=== PATIENT | male | born 1970 | race Caucasian/White ===

== ENCOUNTER 2022-04-02 09:59 | Outpatient (CLI) | payer OTHER, SELFPAY ==
[2022-04-02 20:38] LABS: Kit Draw Collected
== END 2022-04-02 10:00 | disposition home or self-care (01) ==
LOC: ANHGOSHLAB 10:01
PROVIDERS: PCP Family Medicine; Visit Provider Nurse Practitioner
DX: E55.9 Vitamin D deficiency, unspecified (principal); E78.5 Hyperlipidemia, unspecified; I10 Essential (primary) hypertension
CPT/HCPCS: 36415

== ENCOUNTER 2023-03-13 09:35 | Outpatient (CLI) | payer OTHER, SELFPAY ==
[2023-03-13 12:44] LABS: Basophils Absolute Auto 0.1 K/mm3 (0.0-0.1); Basophils Percent Auto 0.9 % (0.2-1.2); Eosinophils Absolute Auto 0.2 K/mm3 (0-0.3); Eosinophils Percent Auto 3.8 % (0-4.4); Hematocrit 41.4 % (42.0-52.0); Immature Granulocyte Absolute 0.01 K/mm3 (0.00-0.031); Immature Granulocyte Percent A 0.2 % (0-0.5); Lymphocytes Absolute Auto 1.42 K/mm3 (0.9-3.2); Lymphocytes Percent Auto 26.8 % (18.3-44.2); Mean Corpuscular HGB Conc 33.8 g/dl (32-36); Mean Corpuscular Hemoglobin 30.6 pg (26-34); Mean Corpuscular Volume 90.6 fl (80-100); Mean Platelet Volume 9.7 fl (7.4-10.4); Monocytes Absolute Auto 0.5 K/mm3 (0.1-0.6); Monocytes Percent Auto 8.5 % (2.6-8.5); Neutrophils Absolute Auto 3.2 K/mm3 (1.3-6.7); Neutrophils Percent Auto 59.8 % (45.5-73.1); Platelet Count Result 233 k/mm3 (150-375); Red Blood Count 4.57 M/mm3 (4.6-6.20); Red Cell Distribution Width 12.5 % (11.5-14.5); White Blood Count 5.3 K/mm3 (4.5-10.0)
[2023-03-13 12:58] LABS: Alanine Aminotransferase 37 U/L (6-50); Albumin Level 4.6 g/dL (3.5-5.1); Alkaline Phosphatase 91 U/L (38-126); Anion Gap 11 mmol/L (8-16); Aspartate Amino Transferase 41 U/L (17-59); Bilirubin,Total 0.6 mg/dL (0.2-1.3); Blood Urea Nitrogen 9 mg/dL (9-20); Calcium 9.7 mg/dL (8.4-10.2); Carbon Dioxide 23 mmol/L (22-30); Chloride 103 mmol/L (98-107); Cholesterol 146 mg/dL (0-200); Estimated Glomerular Filt Rate > 60; Glucose 91 mg/dL (65-110); HDL Direct 53 mg/dL; Potassium 4.1 mmol/L (3.4-5.0); Sodium 137 mmol/L (137-145); Triglycerides 132 mg/dL (<150)
[2023-03-13 13:13] LABS: LDL Cholesterol Direct 66 mg/dL
[2023-03-13 13:27] LABS: Thyroid Stimulating Hormone 0.957 uIU/mL (0.465-4.680)
[2023-03-17 15:53] LABS: Vitamin D 1,25 (OH)2 Total 27 pg/mL (18-72); Vitamin D2 1,25 (OH)2 <8 pg/mL; Vitamin D3 1,25 (OH)2 27 pg/mL
[2023-03-17 18:15] LABS: Testosterone Free 33.2 pg/mL (35.0-155.0); Testosterone Total 296 ng/dL (250-1100)
[2023-03-18 21:11] LABS: PSA, Free 0.14 ng/mL; PSA, Total 0.4 ng/mL (<=4.0)
== END 2023-03-13 09:36 | disposition home or self-care (01) ==
LOC: ANHGOSHLAB 09:36
PROVIDERS: PCP Family Medicine; Visit Provider Nurse Practitioner Family
DX: E55.9 Vitamin D deficiency, unspecified (principal); I10 Essential (primary) hypertension; Z00.00 Encounter for general adult medical examination without abnormal findings; Z12.5 Encounter for screening for malignant neoplasm of prostate; R79.89 Other specified abnormal findings of blood chemistry
CPT/HCPCS: 36415; 80053; 80061; 82652; 84153; 84154; 84402; 84403; 84443; 85025

== ENCOUNTER 2024-07-20 09:55 | Outpatient (CLI) | payer OTHER, SELFPAY ==
--- OUTSIDE RECORDS SUMMARY | 2024-07-20 10:51 | XMS_ITS | Referral Summary ---
Author Organization [facility] [address] [facility] Address [address] [place] [address] Care Team Providers Care Electric Motor Winder Name Role Phone Vangie Henry MD Unavailable [phone] Primo Stahl MD Primary Care Provider Allergies Active Allergy Reactions Criticality Noted Date Comments Sulfa (Sulfonamide Antibiotics) Other (See comments) Low 06/07/2019 Swollen eyes Medications amLODIPine (NORVASC) 10 mg tablet TK 1 T PO D 1 9 Active hydroCHLOROthia zide (HYDRODIURIL) 25 mg tablet TK 1/2 T PO QD 1 9 Active benazepril (LOTENSIN) 40 mg tablet TK 1 T PO QD 1 9 Active neomycin-polymy donny B-dexAMETHasone (POLYDEX) 3.5 mg/g-10,000 unit/g-0.1 % ointment Apply to both eyes 4 (four) times a day 7 g 1 0 Active Additional Information Patient not taking.Reported on 06/07/2019 mupirocin (BACTROBAN) 2 % ointmentIndicat ions:Abscess of left shoulder Apply topically 3 (three) times a day 22 g 2 Active Additional Information Patient not taking.Reported on 04/24/2023 Active Problems Problem Noted Date Diagnosed Date Acute bacterial conjunctivitis of both eyes 04/07 Blepharitis of upper and lower eyelids of both e yes 04/28/2019 Benign hypertension 08/20/2013 Overview (07/10/2016): BENIGN HYPERTENSION Immunizations Immunization Administration Dates Next Due Influenza, Quadrivalent, Spl it, Preservative Free, Intradermal 01/28/2016 Influenza, Split 12/25/2011,05/29/2011 Td, adsorbed 03/11/2004 Tdap 10/02/2008 Social History Tobacco Use Types Packs/Day Years Used Date Smoking Tobacco: Never Smokeless Tobacco: Current Tobacco Cessation:Ready to Q uit: Not Asked; Counseling Given: Not Answered Comments:chews occassionaly Alcohol Use Standard Drinks/Week Comments Yes 0 (1 standard drink = 0.6 oz pur e alcohol) Sex and Gender Information Value Date Recorded Sex Assigned at Not on file Legal Sex Male 11:49 AM APPLICATION SECURITY CONSULTANT Gender Identity Not on file Sexual Orientation Not on file Last Filed Vital Signs Vital Sign Reading Time Taken Comments Blood Pressure 128/74 10/07/2023 6:36 PM CDT Pulse 111 10/07/2023 6:36 PM CDT Temperature 36.8 C (98.2 F) 10/07/2023 6:36 PM CDT Respiratory Rate 17 10/07/2023 6:36 PM CDT Oxygen Saturation 99% 10/07/2023 6:36 PM CDT Inhaled Oxygen Concentration - - Weight 114.6 kg (252 lb 9.6 oz) 10/07/2023 6:36 PM CDT Height 193 cm (6' 4 ) 10/07/2023 6:36 PM CDT Body Mass Index 30.75 10/07/2023 6:36 PM CDT Plan of Treatment Not on file Insurance CIGNA CIGNA CIGNA CIGNA Care Teams Electric Motor Winder Relationship Specialty Start Date End Date Primo Stahl MD [address] [place] [address] PCP - General Family Practice 04/24/23 Vangie Henry MD [address] [employer] [place] [address] 03/31/19
--- OUTSIDE RECORDS SUMMARY | 2024-07-20 10:51 | XMS_ITS | Clinical Summary ---
Author Organization [facility] [address] [facility] Address [address] [place] [address] Care Team Providers Care Party Plan Sales Host/Hostess Name Role Phone Vangie Henry MD Unavailable [phone] Primo Stahl MD Primary Care Provider Allergies [...] Split 12/25/2011,05/29/2011 Td, adsorbed 03/11/2004 Tdap 10/02/2008 Surgical History Surgery Date Site/Laterality Comments OTHER SURGICAL HISTORY left saphenous vein removal.: chronic venous stasis ulcer. Medical History Medical History Date Comments Hx Other Medical SVT Hypertension Hypertension Hx Other Medical Palpitations Hx Other Medical left saphenous vein removal. Hx Other Medical hx of Depressio n Hypertension Family History Medical History Relation Name Comments Other Father Alive and well; Hypertension Mother Hypertension; Other Sister meghann Alive and well; Relation Name Status Comments Father Alive Mother Sister meghann Alive Social History Tobacco Use Types Packs/Day Years Used Date Smoking Tobacco: Never Smokeless Tobacco: Current Tobacco Cessation:Ready to Q uit: Not Asked; Counseling Given: Not Answered Comments:chews occassionaly Alcohol Use Standard Drinks/Week Comments Yes 0 (1 standard drink = 0.6 oz pur e alcohol) Sex and Gender Information Value Date Recorded Sex Assigned at Not on file Legal Sex Male 11:49 AM CANCER SPEC Gender Identity Not on file Sexual Orientation Not on file Obstetrics History Last Filed Vital Signs Vital Sign Reading [...] 10/07/2023 6:36 PM CDT Plan of Treatment Health Maintenance Due Date Last Done Comments Colon Cancer Screening-Colonoscopy 1971 Depression Screening 1971 Hepatitis C Screening 1971 Prostate Cancer Screening-PSA 1971 Hepatitis B Screening 09/11/1989 Regular Well Visit/Exam 18-64 09/11/1989 DTaP/Tdap/Td Vaccine (2 - Td or Tdap) 10/02/2018 10/02/2008, 03/11/2004 Zoster Vaccine (1 of 2) 09/11/2021 Influenza Vaccine (Season Ended) 2024 01/28/2016, 12/25/2011, 05/29/2011 Pneumococcal vaccine <65 Aged Out No longer eligible based on patient's age to complete this topic Insurance CIGNA CIGNA CIGNA CIGNA Care Teams Party Plan Sales Host/Hostess Relationship Specialty Start Date End Date Primo Stahl MD [address] [place] [address] PCP - General Family Practice 04/24/23 Vangie Henry MD [address] [facility] [address] [place] [address] 03/31/19
--- OUTSIDE RECORDS SUMMARY | 2024-07-20 10:51 | XMS_ITS | Continuity of Care Document ---
Author Organization [facility] Address [address] [place] [address] [place] [address] Phone Care Team Providers Care Dock Hand Name Role Phone Ronald Arroyo MD Unavailable Unavailable Allergies, Adverse Reactions, Alerts Substance Reaction Status Criticality Sulfa (Sulfonamide Antibiotics) Active No Information Medications Medication Instructions Dosage Effective Dates (start - stop) Status Comments benazepril 10 mg tablet take 1 tablet by oral route every day 10 MG - Active amlodipine 5 mg tablet take 1 tablet by oral route every day 5 MG - Active hydrochlorothiazide 25 mg tablet take 1 tablet by oral route every day 25 MG - Active Medrol (Gorge) 4 mg tablets in a dose pack take in tapering dose as recommended - No Longer Active Procedures Procedure Date Office/outpatient Visit, Est Office/outpatient Visit, New Advance Directives Directive Yes / No Effective Date File Name No Information Encounters Encounter Description Practice Location Reason(s) For Visit Diagnoses Date Provider Providers Copied on Encounter Office/outpa tient Visit, Est [facility], [address], [place], [place], [id number], [place] tel:[phone] SEC Sonny Duarte allergic conjunctiviti s (chief complaint) Allergic conjunctivit is of both eyes 0 Cruz Cardenas. [address] [facility], [address], [place], [place], [id number], [place]. tel:[phone] Referring Provider: Rachid Lr OD, [address] [place], [address]. tel:[phone] Office/outpa tient Visit, [facility], [facility], [address], [place], [place], [id number], [place] tel:[phone] SEC Sagar MARTINEZ Professional evaluation (chief complaint) Allergic conjunctivit is of both eyesMeibomia n gland dysfunction (MGD) of both eyes 0 Cruz Cardenas. [address] [facility], [address], [place], [place], [id number], [place]. tel:[phone] Referring Provider: Rachid Lr OD, [address] [place], [address]. tel:[phone] Family History Family Member Type Diagnosis Age At Onset Problem (finding) Family history of Diabe caroline mellitus Payers Payer name Insurance type Covered constitution party ID Authordamarisa christopher(s) Ranjit [id number] Social History Type Description Quantity Date Captured Comments Alcohol Use Details Caffeine Use Details Tobacco Use Status Chews tobacco Smoking Status Unknown if ever smoked 20 Non-Smoking Tobacco Use Details Chewing: Age Started: 36 Chewing: No Details Available Sex Male Chief Complaint And Reason For Visit From encounter dated '05/17/2019 10:45'. allergic conjunctivitis (chief complaint). Description: The 48 year old male presents for evaluation of allergic conjunctivitis in the right eye and left eye. Pt states that since his visit 05/06/19, he still keeps getting recurrences of symptoms. He reports that the Medrol helped the redness and rash, but he continues to have swelling, itching, redness, lids matted shut 2 days ago. He did try tobramycin that day and symptoms seem to have gotten worse. Reason For Referral Reason For Referral No Information Plan Of Treatment Date Type Action Status Goal Tobacco cessation counseling completed Goal Tobacco cessation counseling completed Patient Education Learning About Your Eye s completed Patient Education Pinkeye: Care Instructi ons completed History Of Present Illness Encounter Date Complaint History Of Prese nt Illness allergic conjunctivitis The 48 y ear old male presents for evaluation of allergic conjunctivitis in the right eye and left eye. Pt states that since his visit 05/06/19, he still keeps getting recurrences of symptoms. He reports that the Medrol helped the redness and rash, but he continues to have swelling, itching, redness, lids matted shut 2 days ago. He did try tobramycin that day and symptoms seem to have gotten worse. evaluation The 48 year old male presents for evaluation of conjunctivitis ou. Patient states for the last 2 weeks patient has had pink eye. Patient went to urgent care 2 times and even went to 2 different ERs. Patient used Poly, Tobradex/dex, and pili/poly/dex oint. Patients eyes were really swollen and very dry around eyes. Patient had blisters on eyelids. Reading ER told him he was allergic to Sulfa. Patient has a rash on his hands and has been taking Benadryl. Functional Status Date Functional Assessmen t No Information Instructions Date Instruction Additional Infor susana Impression/Plan Impression/Plan Assessments Type Assessment Date assessment Allergic conjunctivitis of both eyes Patient Care Teams Name Effective Dates (start - stop) Status Members No Information
--- OUTSIDE RECORDS SUMMARY | 2024-07-20 10:51 | XMS_ITS | Encounter Summary ---
Author Organization [facility] Address [address] [place] [address] Phone Care Team Providers Care Truck Railroad And Bus Motor Mechanic Name Role Phone No, Physician Primary Care Provider [phone] Vangie Henry MD Unavailable [phone] Primo Stahl MD Primary Care Provider Encounter Details Date Type Department Care Team (Late st Contact Info) Description 05/01/2019 Ophth Exam [facility] Ophthalmology [facility] 3[address] [place] [address] Tristen Wu MD [address] [facility] [address] [place], [place] [id number] Social History Tobacco Use Types Packs/Day Years Used Date Smoking Tobacco: Never Smokeless Tobacco: Current Comments:chews occassionaly Alcohol Use Standard Drinks/Week Comments Yes 0 (1 standard drink = 0.6 oz pur e alcohol) Sex and Gender Information Value Date Recorded Sex Assigned at Not on file Legal Sex Male 11:49 AM PERFORMANCE TEST ARCHITECT Gender Identity Not on file Sexual Orientation Not on file documented as of this encounter Plan of Treatment Not on file documented as of this encounter Visit Diagnoses Not on filedocumented in this encounter Eye Exam Visual Acuity Right eye Left eye Near sc 20/40 ph to 20/25+2 20/25 ph to 20/20-1 Tonometry (Palpation, P8:46 PM) Right eye Left eye Pressure STP STP Pupils Dark Light Shape React APD Right eye 5 3 Round Brisk None Left eye 5 3 Round Brisk None Visual Byrnes Right eye Left eye Full Full Extraocular Movement Right eye Left eye Full Full Dilation Both eyes: 1% Tropicamide, 2 .5% Phenylephrine @ 8:46 PM External Exam Right eye Left eye External erythema erythema Slit Lamp Exam Right eye Left eye Lids/Lashes erythema erythema Conjunctiva/Sclera 1+ injection 1+ injection Cornea Clear Clear Anterior Chamber Deep and quiet Deep and quiet Iris Round and reactive Round and sandra ctive Lens NS NS Vitreous Normal Normal Fundus Exam Right eye Left eye Disc Normal Normal C/D Ratio 0.3 0.3 Macula Normal Normal Vessels Normal Normal Periphery Normal Normal Care Teams Truck Railroad And Bus Motor Mechanic Relationship Specialty Start Date End Date No, Physician PCP - General 03/31/19 04/23/23 Primo Stahl MD [address] [facility] [address] [place] [address] PCP - General Family Practice 04/24/23 Vangie Henry MD [address] [place] [address] 03/31/19 documented as of this encounter
[2024-07-20 13:20] LABS: Basophils Absolute Auto 0.1 K/mm3 (0.0-0.1); Basophils Percent Auto 0.9 % (0.2-1.2); Eosinophils Absolute Auto 0.1 K/mm3 (0-0.3); Eosinophils Percent Auto 1.6 % (0-4.4); Hematocrit 50.9 % (42.0-52.0); Hemoglobin 16.8 g/dL (14.0-18.0); Immature Granulocyte Absolute 0.01 K/mm3 (0.00-0.031); Immature Granulocyte Percent A 0.2 % (0-0.5); Lymphocytes Absolute Auto 1.25 K/mm3 (0.9-3.2); Lymphocytes Percent Auto 22.1 % (18.3-44.2); Mean Corpuscular Hemoglobin 31.1 pg (26-34); Mean Corpuscular Volume 94.1 fl (80-100); Mean Platelet Volume 9.5 fl (7.4-10.4); Monocytes Absolute Auto 0.8 K/mm3 (0.1-0.6); Monocytes Percent Auto 14.2 % (2.6-8.5); Neutrophils Absolute Auto 3.5 K/mm3 (1.3-6.7); Platelet Count Result 239 k/mm3 (150-375); Red Blood Count 5.41 M/mm3 (4.6-6.20); Red Cell Distribution Width 12.9 % (11.5-14.5); White Blood Count 5.7 K/mm3 (4.5-10.0)
[2024-07-20 13:54] LABS: Vitamin D 25 Hydroxy 52.5 ng/mL
[2024-07-20 14:02] LABS: Alanine Aminotransferase 25 U/L (6-50); Albumin Level 4.9 g/dL (3.5-5.1); Alkaline Phosphatase 90 U/L (38-126); Anion Gap 12 mmol/L (4-12); Aspartate Amino Transferase 31 U/L (17-59); Bilirubin,Total 0.8 mg/dL (0.2-1.3); Blood Urea Nitrogen 9 mg/dL (9-20); Carbon Dioxide 29 mmol/L (22-30); Chloride 93 mmol/L (98-107); Cholesterol 173 mg/dL (0-200); Estimated Glomerular Filt Rate > 60; Glucose 98 mg/dL (65-110); HDL Direct 52 mg/dL; Potassium 4.2 mmol/L (3.4-5.0); Sodium 134 mmol/L (137-145); Triglycerides 86 mg/dL (<150)
[2024-07-20 14:07] LABS: Thyroid Stimulating Hormone Reflex 0.683 uIU/mL (0.465-4.68)
[2024-07-20 14:15] LABS: LDL Cholesterol Direct 91 mg/dL
[2024-07-20 14:33] LABS: Prostate Specific Antigen 0.4 ng/mL (< OR = 4.0)
[2024-07-25 13:48] LABS: Testosterone Total 307 ng/dL (250-1100)
== END 2024-07-20 09:56 | disposition home or self-care (01) ==
LOC: ANHGOSHLAB 09:56
PROVIDERS: PCP Family Medicine; Visit Provider Nurse Practitioner Family
DX: E55.9 Vitamin D deficiency, unspecified (principal); I10 Essential (primary) hypertension; Z12.5 Encounter for screening for malignant neoplasm of prostate; E29.1 Testicular hypofunction
CPT/HCPCS: 36415; 80053; 80061; 82306; 84153; 84403; 84443; 85025; G0103